=== PATIENT | male | born 1955 | race Caucasian/White ===

== ENCOUNTER 2017-06-02 17:48 | Emergency (ER) | payer BC ==
[~2017-06-02] VITALS: Ht 177.8 cm; Wt 101.5 kg
[2017-06-02 19:18] LABS: ADD MIUA? NO; BILIRUBIN NEGATIVE; BLOOD NEGATIVE; COLOR YELLOW ((YELLOW)); GLUCOSE (STRIP) NEGATIVE; KETONES 5; LEUKOCYTES NEGATIVE; NITRITE NEGATIVE; PROTEIN (STRIP) 30; SPECIFIC GRAVITY 1.023 (1.000-1.030); UCUL ADDED? NO; UROBILINOGEN 0.2 MG/DL (0.2-1.0)
[2017-06-02 19:30] LABS: HEMATOCRIT 48.7 % (38.0-50.0); MCH 31.1 PG (29.0-34.0); MCHC 34.9 G/DL (30.0-36.0); MEAN PLAT.VOLUME 10.1 uM^3 (9.0-12.4); PLATELET COUNT 262 K/uL (156-360); RBC DIS.WIDTH-CV 12.1 % (11.8-14.6); RED BLOOD COUNT 5.47 M/uL (4.00-5.50); WHITE BLOOD COUNT 18.7 K/uL (4.1-10.2)
[2017-06-02 19:39] LABS: CHLORIDE 100 mEq/L (99-109); POTASSIUM 4.4 mEq/L (3.7-5.4); SODIUM 136 mEq/L (136-147)
[2017-06-02 19:40] LABS: AMYLASE 57 IU/L (1-118)
[2017-06-02 19:41] LABS: GLUCOSE 107 mg/dL (70-99)
[2017-06-02 19:43] LABS: ANION GAP 11 MEQ/L (2-14); TOTAL BILIRUBIN 1.2 mg/dL (0.0-1.0)
[2017-06-02 19:45] LABS: ALKALINE PHOSPHATASE 63 IU/L (3-129); GFR ESTIMATE (CALCULATED) 44 mL/min/
[2017-06-02 19:46] LABS: UREA NITROGEN (BUN) 22 mg/dL (9-23)
[2017-06-02 19:49] LABS: LIPASE 17 U/L (1.0-51.0)
[2017-06-02] MEDS ORDERED: ZOFRAN ODT4 MG PO (21:11)
[2017-06-02] MEDS ORDERED: FLOMAX0.4 MG PO (21:11)
[2017-06-02] MEDS ORDERED: ULTRAM50 MG PO (21:12)
[2017-06-02 22:03] VITALS: BP 132/70
== END 2017-06-02 22:04 | disposition home or self-care (01) ==
LOC: EME 17:48
PROVIDERS: Nurse Practitioner Family
DX: N13.2 Hydronephrosis with renal and ureteral calculous obstruction (principal); N19 Unspecified kidney failure; R10.11 Right upper quadrant pain; K21.9 Gastro-esophageal reflux disease without esophagitis
CPT/HCPCS: 74176; 80053; 81003; 82150; 83690; 85027; 99281; 99284; J1885; J2405; J7030

== ENCOUNTER 2017-06-26 09:27 | Observation (INO) | payer BC ==
[~2017-06-26] VITALS: Ht 177.8 cm; Wt 97.0 kg
[~2017-06-26 09:27] MED LIST: FLOMAX0.4 MG PO; ULTRAM50 MG PO; ZOFRAN ODT4 MG PO
[2017-06-26 10:23] LABS: ADD MIUA? NO; BILIRUBIN NEGATIVE; BLOOD NEGATIVE; COLOR YELLOW ((YELLOW)); GLUCOSE (STRIP) NEGATIVE; KETONES NEGATIVE; LEUKOCYTES NEGATIVE; NITRITE NEGATIVE; PROTEIN (STRIP) NEGATIVE; SPECIFIC GRAVITY 1.018 (1.000-1.030); UROBILINOGEN 0.2 MG/DL (0.2-1.0)
[2017-06-26 10:46] LABS: BASOPHIL COUNT 0.1 K/uL (0-0.1); EOSINOPHIL (%) 1.3 % (0-5); EOSINOPHIL COUNT 0.2 K/uL (0-0.3); HEMATOCRIT 49.8 % (38.0-50.0); IMMATURE GRANULOCYTE (%) 0.6 % (0.0-0.7); IMMATURE GRANULOCYTE COUNT 0.1 K/uL; INSTRUMENT ABS NEUTROPHIL CT 11.5 K/uL; LYMPHOCYTE COUNT 1.7 K/uL (1.0-2.8); MCH 31.1 PG (29.0-34.0); MCHC 35.5 G/DL (30.0-36.0); MCV 87.4 FL (86-99); MONOCYTE (%) 12.1 % (3-12); MONOCYTE COUNT 1.9 K/uL (0-0.8); NEUTROPHIL (%) 74.5 % (45-76); NEUTROPHIL COUNT 11.5 K/uL (1.8-6.4); PLATELET COUNT 276 K/uL (156-360); RBC DIS.WIDTH-CV 11.6 % (11.8-14.6); RBC DIS.WIDTH-SD 37.1 % (39-53); WHITE BLOOD COUNT 15.4 K/uL (4.1-10.2)
[2017-06-26 11:08] LABS: CHLORIDE 101 mEq/L (99-109); POTASSIUM 5.2 mEq/L (3.7-5.4); SODIUM 137 mEq/L (136-147)
[2017-06-26 11:10] LABS: GLUCOSE 97 mg/dL (70-99)
[2017-06-26 11:11] LABS: ANION GAP 15 MEQ/L (2-14)
[2017-06-26 11:13] LABS: GFR ESTIMATE (CALCULATED) 44 mL/min/
[2017-06-26 11:14] LABS: UREA NITROGEN (BUN) 22 mg/dL (9-23)
[2017-06-26] MEDS ORDERED: PROTONIX40 MG PO (12:09)
[2017-06-26] MEDS ORDERED: TOPROL XL50 MG PO (12:09)
[2017-06-26] MEDS ORDERED: EXCEDRIN EXTRA1 EACH PO (12:09)
[2017-06-26] MEDS ORDERED: ONE DAILY FOR1 EACH PO (12:10)
[2017-06-26 14:37] VITALS: BP 162/72
[2017-06-27 00:05] VITALS: BP 143/82
[2017-06-27 06:20] LABS: ANION GAP 8 MEQ/L (2-14); CHLORIDE 101 MEQ/L (99-109); GFR ESTIMATE (CALCULATED) 44 mL/min/; GLUCOSE 101 mg/dL (70-99); POTASSIUM 4.7 MEQ/L (3.7-5.4); SAMPLE HEMOLYSIS CHECK 0; SAMPLE ICTERIC CHECK 0; SAMPLE LIPEMIA CHECK 0; SODIUM 136 MEQ/L (136-147); UREA NITROGEN (BUN) 22 mg/dL (9-23)
[2017-06-27 07:31] VITALS: BP 167/89
[2017-06-27] MEDS ORDERED: CIPROFLOXACIN500 M1 PO (13:02)
[2017-06-27] MEDS ORDERED: ENDOCET 5-3251 EACH PO (13:04)
== END 2017-06-27 15:19 | disposition home or self-care (01) ==
LOC: EME 09:27 → EDOF 12:51 → 5EAST 12:51 → EDOF 12:51 → ENRESERV 12:58 → 5EAST 14:15
PROVIDERS: Emergency Medicine; Hospitalist
DX: N13.2 Hydronephrosis with renal and ureteral calculous obstruction (principal); I10 Essential (primary) hypertension; K21.9 Gastro-esophageal reflux disease without esophagitis; Z87.442 Personal history of urinary calculi; N17.9 Acute kidney failure, unspecified; Z82.3 Family history of stroke
CPT/HCPCS: 74176; 80048; 81003; 82365 90; 85025; 99281; 99284; C1877; G0378; J0690; J1885; J2250; J2270; J2405; J3010; J7030; S0028